=== PATIENT | female | born 1970 | race Caucasian/White ===

== ENCOUNTER 2018-10-19 22:01 | Emergency (ER) | payer OTHER ==
[~2018-10-19] VITALS: Ht 162.6 cm; Wt 50.8 kg
[2018-10-19 22:16] VITALS: BP 106/68
[2018-10-19] MEDS ORDERED: KETOROLAC 30 MG/ML VIAL IVP ONE (22:35)
[2018-10-19] MEDS ORDERED: NACL 0.9% 1,000 ML IV ONE (22:35)
[2018-10-19] MEDS: KETOROLAC 60 MG/2 ML VIAL IM ONE (23:14)
[2018-10-20] MEDS: MORPHINE SULFATE 4 MG/ML SYR IM ONE (00:11)
[2018-10-20 00:24] VITALS: BP 113/71
== END 2018-10-20 00:24 | disposition home or self-care (01) ==
LOC: MED 22:01
DX: M54.42 Lumbago with sciatica, left side (principal); F17.210 Nicotine dependence, cigarettes, uncomplicated
CPT/HCPCS: 81002; 81025; 96372; 99283; J1885; J2270

== ENCOUNTER 2019-06-29 07:51 | Inpatient (IN) | payer OTHER ==
[~2019-06-29] VITALS: Ht 165.1 cm; Wt 59.0 kg
--- NOTE | 2019-06-29 07:51 | NUR ---
Patient BIBA BLS, transferred to bed 11. RN evaluating patient at bedside.
--- NOTE | 2019-06-29 07:52 | NUR ---
Dr. Bagley is evaluating the patient at bedside.
[2019-06-29 07:57] VITALS: BP 189/106
[2019-06-29] MEDS ORDERED: NACL 0.9% 1,000 ML IV SCH (07:57)
[2019-06-29] MEDS ORDERED: fentaNYL 0.05 MG/ML VIAL IVP ONE (08:00)
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
[2019-06-29] MEDS ORDERED: LORazepam 2 MG/ML VIAL IVP ONE (08:25)
[2019-06-29] MEDS ORDERED: AMPICILLIN/SULBACTAM 3 GM in NACL 0.9% 100 ML IV ONE (08:35)
--- NOTE | 2019-06-29 08:35 | NUR ---
PT SIGNED CONSENT FOR CT WITH CONTRAST
[2019-06-29 08:36] LABS: BASOPHILS # (AUTO) 0.1 K/uL (0.00-0.22); BASOPHILS % (AUTO) 0.9 % (0.0-2.0); EOSINOPHILS # (AUTO) 0.4 K/uL (0-0.4); EOSINOPHILS % (AUTO) 4.7 % (0.0-4.0); HEMATOCRIT 35.4 % (36-48); HEMOGLOBIN 11.8 g/dL (12.0-16.0); LYMPHOCYTES # (AUTO) 1.6 K/uL (2.5-16.5); LYMPHOCYTES % (AUTO) 20.9 % (20.5-51.1); MEAN CORPUSCULAR HEMOGLOBIN 31 pg (27-31); MEAN CORPUSCULAR HGB CONC 33 g/dL (33-37); MONOCYTES # (AUTO) 0.5 K/uL (0.8-1.0); MONOCYTES % (AUTO) 6.1 % (1.7-9.3); NEUTROPHILS # (AUTO) 5.3 K/uL (1.8-7.7); NEUTROPHILS % (AUTO) 67.4 % (42.2-75.2); PLATELET COUNT (AUTO) 243 K/uL (140-450); RED BLOOD CELL COUNT(AUTO) 3.85 MIL/uL (4.20-5.40); RED CELL DISTRIBUTION WIDTH 12.7 % (11.6-13.7); WHITE BLOOD COUNT (AUTO) 7.8 K/uL (4.8-10.8)
[2019-06-29] MEDS ORDERED: AMPICILLIN/SULBACTAM 3 GM VIAL ONE ×2 (08:39→08:40)
--- NOTE | 2019-06-29 08:53 | NUR ---
PT RESTING COMFORTABLY AT THIS TIME. PT IS NO LONGER SCREAMING AND IS ABLE TO REST. PT IS AROUSEABLE BY VOICE.
[2019-06-29 09:08] LABS: ALBUMIN 3.9 g/dL (3.4-5.0); CARBON DIOXIDE 27.8 mmol/L (21-32); CREATININE 0.9 mg/dL (0.6-1.3); POTASSIUM 3.8 mmol/L (3.5-5.1); TOTAL BILIRUBIN 0.2 mg/dL (0.0-1.0)
--- NOTE | 2019-06-29 09:42 | NUR ---
Patient returned from CT scan. RN re-evaluating patient at bedside.
[2019-06-29] MEDS ORDERED: MORPHINE SULFATE 4 MG/ML SYR IVP ONE (10:05)
--- NOTE | 2019-06-29 10:37 | NUR ---
LAST MEAL 99 TODAY
--- NOTE | 2019-06-29 10:46 | NUR ---
PT ASSISTED ONTO BEDPAN , URINE COLLECTED
--- NOTE | 2019-06-29 10:58 | NUR ---
PT IN BED SLEEPING. EASILY AROUSEABLE TO VOICE.
[2019-06-29] MEDS ORDERED: HYDROmorphone PFS 2 MG/ML SYR ONE (11:00)
[2019-06-29] MEDS ORDERED: SEVOFLURANE 250 ML BTL INH ONE (11:00)
[2019-06-29] MEDS ORDERED: MIDAZOLAM 2 MG/2 ML VIAL ONE (11:00)
[2019-06-29] MEDS ORDERED: SUCCINYLCHOLINE CHLORIDE 200 MG/10 ML VIAL IVP ONE (11:00)
[2019-06-29] MEDS ORDERED: ONDANSETRON 4 MG/2 ML VIAL ONE (11:00)
[2019-06-29] MEDS ORDERED: METOCLOPRAMIDE 10 MG/2 ML INJ VIAL ONE (11:00)
[2019-06-29] MEDS ORDERED: PROPOFOL 200 MG/20 ML VIAL IV ONE (11:00)
--- NOTE | 2019-06-29 11:07 | NUR ---
PT TAKEN TO SURGERY. WILL GO TO MED SURG RM AFTER SURGERY
[2019-06-29] MEDS ORDERED: LIDOCAINE 1% 500 MG/50 ML VIAL ONE (11:10)
[2019-06-29] MEDS ORDERED: BUPIVACAINE-MPF 0.25% 30 ML VIAL INJ ONE (11:10)
[2019-06-29 11:19] LABS: BARBITURATE, URINE NEGATIVE ng/ml (NEG <=200); BENZODIAZEPINE, URINE NEGATIVE ng/mL (NEG <=200); CANNABINOID, URINE NEGATIVE ng/mL (NEG <=50); COCAINE, URINE NEGATIVE ng/mL (NEG <=300); OPIATE, URINE NEGATIVE ng/mL (NEG <=2000); PHENCYCLIDINE SCREEN,URINE NEGATIVE ng/mL (NEG <=25)
[2019-06-29 11:27] LABS: APPEARANCE,URINE CLEAR (CLEAR); BILIRUBIN,URINE NEGATIVE (NEGATIVE); BLOOD, URINE NEGATIVE (NEGATIVE); COLOR,URINE YELLOW (YELLOW); LEUKOCYTE ESTERASE ,URINE NEGATIVE (NEGATIVE); NITRITE, URINE NEGATIVE (NEGATIVE); UGLUCOSE NEGATIVE (NEGATIVE)
[2019-06-29] MEDS ORDERED: HYDROcodone/APAP 5/325 MG 1 TAB TAB PO PRN (11:55)
[2019-06-29] MEDS: NACL 0.9% 1,000 ML IV SCH (12:18)
[2019-06-29] MEDS ORDERED: MORPHINE SULFATE 4 MG/ML SYR IVP PRN (12:20)
[2019-06-29] MEDS ORDERED: ACETAMINOPHEN 325 MG TAB PO PRN (12:20)
[2019-06-29 12:50] VITALS: BP 119/74
--- NOTE | 2019-06-29 12:50 | NUR ---
PT ARRIVED ON UNIT FROM OR. S/P I&D ON LEFT FLANK. BANDAGE WITH SANGUINOUS DRAINAGE ON LEFT FLANK NOTED. RECEIVED REPORT FROM HAIRSPRING I INSPECTOR. PT IS SLEEPING, AROUSABLE TO VOICE. VITAL SIGNS ARE STABLE. TEMP: 97.4 F; PULSE: 77; RR:18; SPO2: 97%; BP: 134/80 NO DISTRESS NOTED. SAFETY MEASURES IN PLACE. WILL CONTINUE TO MONITOR.
--- NOTE | 2019-06-29 13:10 | NUR ---
POST SURGERY PATIENT UNABLE TO RESPOND TO SUSTAINABILITY PROJECT MANAGER VIA VERBAL COMMANDS AND PATIENT "NUDGING" TO PARTICIPATE IN INCENTIVE SPIROMETRY THERAPY AT THIS TIME ASSESSMENT COMPLETED SUSTAINABILITY PROJECT MANAGER TO ATTEMPT INCENTIVE SPIROMETRY THERAPY AT A LATER TIME
--- NOTE | 2019-06-29 14:00 | NUR ---
MRSA NARES COLLECTED. VITAL SIGNS STABLE. PT IS SLEEPING, AROUSABLE TO VOICE. WILL CONTINUE TO MONITOR.
--- NOTE | 2019-06-29 14:22 | NUR ---
IVF NS HUNG, AND RUNNING PER ORDERS. VITAL SIGNS STABLE. WILL CONTINUE TO MONITOR.
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
--- NOTE | 2019-06-29 19:29 | NUR ---
ENDORSED TO ONION TIER NURSE FOR CONTINUITY OF CARE. PT IS IN STABLE CONDITION.
--- NOTE | 2019-06-29 19:30 | NUR ---
RECEIVED BEDSIDE REPORT FROM AM SHIFT NURSEJARROD. PATIENT IS LYING IN BED, AWAKE AND ALERT. NO SOB OR DISTRESS NOTED. ON ROOM AIR. IV ACCESS ON LEFT AC 20 GAUGE, PATENT, INTACT AND INFUSING WELL. PATIENT IS NOTED WITH A DRESSING ON LEFT FLANK. INITIAL ASSESSMENT DONE, SKIN IS INTACT WITH SOME NOTED SMALL DRIED SCABS ON LOWER EXTREMITY. BED IN LOW, BED LOCKED. SAFETY MEASURES IN PLACE. CALL LIGHT WITHIN PATIENT REACH. WILL CONTINUE TO MONITOR PATIENT.
[2019-06-29] MEDS: AMPICILLIN/SULBACTAM 1.5 GM in NACL 0.9% 50 ML IV SCH (20:56)
--- NOTE | 2019-06-29 21:49 | NUR ---
PATIENT CRYING. PRN MORPHINE GIVEN PER PAIN SCALE FOR SEVERE PAIN. WILL CONTINUE TO MONITOR PATIENT.
--- NOTE | 2019-06-29 22:35 | NUR ---
ROUNDS DONE. PATIENT RESTING WITH EYES CLOSED. NO SOB OR DISTRESS NOTED. CALL LIGHT WITHIN PATIENT REACH.WILL CONTINUE TO MONITOR PATIENT.
[2019-06-30] VITALS: BP 120/70
--- NOTE | 2019-06-30 | NUR ---
VITALS DONE AT THIS TIME. VISIBLE CHEST RISE AND FALL NOTED. NO SOB OR DISTRESS NOTED. CALL LIGHT WITHIN PATIENT REACH. WILL CONTINUE TO MONITOR PATIENT.
[2019-06-30] MEDS: NACL 0.9% 1,000 ML IV SCH ×2 (01:43→14:58)
--- NOTE | 2019-06-30 02:00 | NUR ---
ROUNDS DONE. PATIENT RESTING WITH EYES CLOSED. VISIBLE CHEST RISE AND FALL NOTED. CALL LIGHT WITHIN PATIENT REACH. WILL CONTINUE TO MONITOR PATIENT.
[2019-06-30] MEDS: HYDROcodone/APAP 5/325 MG 1 TAB TAB PO PRN ×3 (04:18→14:08)
--- NOTE | 2019-06-30 04:20 | NUR ---
PRN NORCO GIVEN FOR MODERATED PAIN PER PATIENT REQUEST. WILL CONTINUE TO MONITOR PATIENT.
[2019-06-30] MEDS: AMPICILLIN/SULBACTAM 1.5 GM in NACL 0.9% 50 ML IV SCH ×2 (04:56→13:27)
--- NOTE | 2019-06-30 07:00 | NUR ---
RECEIVED REPORT FROM NIGHT NURSE FOR CONTINUITY OF CARE, PT IS STABLE, PT ASLEEP BUT WOKE UP AND INTRODUCED SELF, PT IS AAOX4, RESPIRATIONS ARE EVEN AND UNLABORED ON ROOM AIR, NO SIGNS OF DISTRESS NOTED, PT HAS LEFT AC 20 6 INFUSING NORMAL SALINE AT 75ML/H, PT IS S/P I&D AND HAS BANDAGE ON LEFT ABD, UPDATED WHITEBOARD, BED IN LOW POSITION, ALL NEEDS MET, WILL CONTINUE TO MONITOR, CALL LIGHT WITHIN REACH.
--- NOTE | 2019-06-30 07:05 | NUR ---
ENDORSED TO AM SHIFT NURSE FOR CONTINUITY OF CARE. PATIENT IN STABLE CONDITION. CALL LIGHT WITHIN PATIENT REACH.
[2019-06-30 07:17] LABS: BASOPHILS % (AUTO) 0.3 % (0.0-2.0); EOSINOPHILS # (AUTO) 0.1 K/uL (0-0.4); EOSINOPHILS % (AUTO) 1.6 % (0.0-4.0); HEMATOCRIT 31.9 % (36-48); HEMOGLOBIN 10.8 g/dL (12.0-16.0); LYMPHOCYTES # (AUTO) 1.3 K/uL (2.5-16.5); LYMPHOCYTES % (AUTO) 14.6 % (20.5-51.1); MEAN CORPUSCULAR HEMOGLOBIN 31 pg (27-31); MEAN CORPUSCULAR HGB CONC 34 g/dL (33-37); MEAN CORPUSCULAR VOLUME 91.7 fL (80-94); MONOCYTES # (AUTO) 0.5 K/uL (0.8-1.0); MONOCYTES % (AUTO) 5.7 % (1.7-9.3); NEUTROPHILS # (AUTO) 6.8 K/uL (1.8-7.7); NEUTROPHILS % (AUTO) 77.8 % (42.2-75.2); PLATELET COUNT (AUTO) 228 K/uL (140-450); RED BLOOD CELL COUNT(AUTO) 3.48 MIL/uL (4.20-5.40); RED CELL DISTRIBUTION WIDTH 12.3 % (11.6-13.7); WHITE BLOOD COUNT (AUTO) 8.7 K/uL (4.8-10.8)
[2019-06-30 07:37] LABS: ALBUMIN 2.9 g/dL (3.4-5.0); ANION GAP 10.9 (8-16); CARBON DIOXIDE 29.2 mmol/L (21-32); CREATININE 0.7 mg/dL (0.6-1.3); POTASSIUM 4.1 mmol/L (3.5-5.1); TOTAL BILIRUBIN 0.3 mg/dL (0.0-1.0)
[2019-06-30 08:00] VITALS: BP 120/69
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
--- NOTE | 2019-06-30 09:31 | NUR ---
NOTIFIED PT THAT DR GILLIAM PUT THE PT ON REGULAR DIET AND CAN RESUME DIET, INFORMED PT AND CALLED FNS FOR A TRAY.
--- NOTE | 2019-06-30 10:13 | NUR ---
ADMINISTERED NORCO FOR PAIN 5/10, PT STATES THE PAIN IS SORENESS, MEDICATION EDUCATION GIVEN, PT VERBALIZED UNDERSTANDING, PT IS STABLE, CALL LIGHT WITHIN REACH.
--- NOTE | 2019-06-30 13:29 | NUR ---
ADMINISTERED SCHEDULED MEDICATION, MEDICATION EDUCATION GIVEN, PT VERBALIZED UNDERSTANDING, PT IS STABLE, NO SIGNS OF DISTRESS NOTED, CALL LIGHT WITHIN REACH.
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
--- NOTE | 2019-06-30 13:44 | NUR ---
RECEIVED TORB FROM DR NARAYAN'S PA, CHARLENE, INFORMED TO CHANGE DRESSING TO 4X4 WITH TAPE AND TAKE OUT PACKING. EDUCATED PT AND CLEANED THE WOUND, PT TOLERATED OKAY, PT IS STABLE, CALL LIGHT WITHIN REACH.
[2019-06-30] MEDS ORDERED: ACET-1182 PO (14:04)
[2019-06-30] MEDS ORDERED: ACET-9525 PO (14:04)
--- NOTE | 2019-06-30 14:09 | NUR ---
ADMINISTERED NORCO FOR PAIN OG 07/01 PT STATES HER WOUND SITE FEELS SORE AND IT HURTS, PT IS CRYING, MEDICATION EDUCATION GIVEN, PT VERBALIZED UNDERSTANDING, PT IS STABLE, NO SIGNS OF RESPIRATORY DISTRESS NOTED, CALL LIGHT WITHIN REACH.
[2019-06-30 16:00] VITALS: BP 117/68
--- NOTE | 2019-06-30 16:34 | NUR ---
DISCHARGED PT, DISCHARGED INSTRUCTIONS GIVEN, PT VERBALIZED UNDERSTANDING, IV REMOVED, PT BELONGING RETURNED BUT PT STATES SHE IS MISSING A NECKLACES SHE STATES SHE HAD PRIOR TO GOING INTO SURGERY, CHECKED BELONGING LIST AND NO LISTING OF NECKLACES NOTED, CALLED OR TO VERIFY THE PRESENCES OF NECKLACE DURING SURGERY, YET NO ONE ANSWERED OR PHONE. INFORMED PT THAT NECKLACE WAS NOT LISTED ON BELONGING LIST AND THAT OR DID NOT ANSWER PHONE CALL, PT DISCHARGED FOR HOME, PT WALKED WITH STEADY GAIT TO LOBBY ACCOMPANIED BY DRY CELL ASSEMBLY MACHINE TENDER, PT STABLE.
== END 2019-06-30 16:40 | disposition home or self-care (01) | DRG 951 ==
LOC: MED 07:51 → MTU 11:21
PROVIDERS: ADMIT Hospitalist; ATTEND Hospitalist
PROC: 0WCG0ZZ Extirpation of Matter from Peritoneal Cavity, Open Approach (ICD-10-PCS; principal; 2019-06-29 11:00)
DX: S30.1XXA Contusion of abdominal wall, initial encounter (principal); L02.211 Cutaneous abscess of abdominal wall; F17.210 Nicotine dependence, cigarettes, uncomplicated; Z59.0 Homelessness; F32.9 Major depressive disorder, single episode, unspecified
CPT/HCPCS: 36415; 80053; 80305; 81003; 83605; 83690; 85025; 86886; 86900; 86901; 87040; 87070; 87075; 87081; 87205; 99285; G0482; J0295; J0330; J1170; J2001; J2060; J2250; J2270; J2405; J2704; J2765; J3010; J3490; J7030; Q9967